=== PATIENT | female | born 1980 | race Caucasian/White ===

== ENCOUNTER 2017-06-22 14:00 | Emergency (ER) | payer OTHER ==
[~2017-06-22] VITALS: Ht 170.2 cm; Wt 69.0 kg
[~2017-06-22 14:00] MED LIST: ACEPHEN325 MG PO; ENDOCET 5-3251 EACH PO; IBUPROFEN800 MG PO; Motrin PO; TYLENOL REGULA325 MG PO; ZANTAC75 M1 PO
[2017-06-22 14:30] VITALS: BP 103/63
== END 2017-06-22 15:17 | disposition left against medical advice (07) ==
LOC: EME 14:00
DX: R55 Syncope and collapse (principal); Z53.21 Procedure and treatment not carried out due to patient leaving prior to being seen by health care provider